=== PATIENT | male | born 1955 | race Caucasian/White ===

== ENCOUNTER 2016-12-20 18:46 | Emergency (ER) | payer OTHER ==
[~2016-12-20] VITALS: Ht 170.2 cm; Wt 129.3 kg
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
[~2016-12-20 18:46] MED LIST: ADVAIR 2501 DISK W/D PO; ALLEGRA PO; AZOR 10/40 MG PO; BENICAR PO; BYSTOLIC PO; CLINDAMYCIN HC300 MG PO; FLOVENT HFA10.6 GM; KEFLEX PO; NEXIUM PO; SINGULAIR PO; VICODIN 5/500 T1 TAB PO; ZOCOR PO
== END 2016-12-20 21:11 | disposition home or self-care (01) ==
LOC: SED 18:46
DX: S60.222A Contusion of left hand, initial encounter (principal); Z79.899 Other long term (current) drug therapy; W22.8XXA Striking against or struck by other objects, initial encounter; Y92.009 Unspecified place in unspecified non-institutional (private) residence as the place of occurrence of the external cause
CPT/HCPCS: 73130; 99283